=== PATIENT | male | born 1980 | race Two or more races ===

== ENCOUNTER 2025-05-15 19:34 | Emergency (ER) | payer OTHER ==
[~2025-05-15] VITALS: Ht 175.3 cm; Wt 116.1 kg
[~2025-05-15 19:34] MED LIST: AZITHROMYCIN1 G/PKT PO
[2025-05-15] MEDS ORDERED: KETOROLAC TROMETHAMINE 30 MG VIAL IM STA (21:19)
[2025-05-15] MEDS ORDERED: ORPHENADRINE CITRATE 30 MG/ML AMPUL IM STA (21:19)
[2025-05-15] MEDS ORDERED: DEXAMETHASONE SODIUM PHOSPHATE 4 MG/ML VIAL IM STA (21:20)
[2025-05-15] MEDS ORDERED: ORPHENADRINE CITRATE 30 MG/ML AMPUL ONE (22:02)
[2025-05-15] MEDS ORDERED: KETOROLAC TROMETHAMINE 30 MG VIAL ONE (22:03)
[2025-05-15] MEDS ORDERED: DEXAMETHASONE SODIUM PHOSPHATE 4 MG/ML VIAL ONE (22:03)
== END 2025-05-15 22:25 | disposition home or self-care (01) ==
LOC: ER 19:34
DX: M75.00 Adhesive capsulitis of unspecified shoulder (principal)